=== PATIENT | female | born 1970 ===

== ENCOUNTER → 2023-12-13 06:30 | Day surgery (SDC) | payer OTHER, SELFPAY | LOC: GI 06:30 | PROVIDERS: ATTENDING PHYSICIAN Internal Medicine Gastroenterology | DX: R19.7 Diarrhea, unspecified (principal); K64.8 Other hemorrhoids; R19.4 Change in bowel habit | CPT/HCPCS: 45378; 88305; G0378 ==

== ENCOUNTER 2023-12-16 06:21 | Day surgery (SDC) | payer OTHER, SELFPAY | END 2024-01-31 01:00 | LOC: GI 06:21 | PROVIDERS: ATTENDING PHYSICIAN Internal Medicine Gastroenterology | DX: R19.7 Diarrhea, unspecified (principal); R19.4 Change in bowel habit; K64.8 Other hemorrhoids; Z98.84 Bariatric surgery status | CPT/HCPCS: 45380; 88305 ==